=== PATIENT | male | born 1955 | race Caucasian/White ===

== ENCOUNTER 2019-01-11 01:28 | Inpatient (IN) | payer OTHER ==
[2019-01-11] VITALS (20 sets, daily range): BP systolic 105–151; BP diastolic 50–101
[~2019-01-11] VITALS: Ht 180.3 cm; Wt 77.6 kg
--- NOTE | ~2019-01-11 | EKG ---
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
--- NOTE | ~2019-01-11 | D ---
[facility] [address] [place] [address] DISCHARGE SUMMARY Name: ANUPAM RM Room: [address] IN M.R.#: [id number] Admission: 01/11/19 Attend Phys: Rey Ramirez MD, Discharge: 01/13/19 Date of : 55 Report #: [id number] THIS REPORT FOR: //name// CC: [facility] physician/PCP Rey Ramirez DATE OF SERVICE: 01/13/2019 FINAL DISCHARGE DIAGNOSES: 1. Acute anterior wall ST-segment elevation myocardial infarction. 2. Ischemic cardiomyopathy. 3. Hyperlipidemia. PROCEDURES: 01/11/2019 - left heart catheterization, selective coronary arteriography and percutaneous coronary intervention with deployment of 4 drug-eluting stents in the totally occluded LAD in its proximal and mid portion. 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 He developed achiness in the chest and left arm while en route and stopped in [place], [place]. He was brought emergently by the EMT to the [facility] Emergency Room where electrocardiogram revealed acute anterior wall ST segment elevation myocardial infarction. He was taken emergently to the catheterization laboratory, was found to have a totally occluded proximal LAD with a prominent intraluminal thrombus. There were modest narrowings of the circumflex and right coronary artery without hemodynamically significant stenosis. In this context, I performed acute percutaneous coronary intervention on the LAD, deploying 4 drug-eluting stents in the proximal to mid LAD with 0% narrowing in the most proximal portion, 10% in the mid and 0% in the mid to distal LAD with JOANNA 3 flow of the distal vessel. With the washout, troponin annette to a peak value of 100. Echocardiogram after the event revealed an ejection fraction of approximately 40% with distal septal and anteroapical hypo to akinesis. He did well clinically. He did demonstrate transient episodes of SVT and nonsustained ventricular tachycardia in the early post-infarct phase, but these were remitted. He ambulated in the hallways without difficulty and there was good hemostasis at the right femoral site of catheterization. LABORATORY DATA: On 01/12, revealed sodium 140, potassium 4.2, BUN 12, creatinine 1.0. Hemoglobin 14.4, white blood cell counts 10,500 with 183,000 platelets. He ambulated in [place] [address] DISCHARGE SUMMARY Name: ANUPAM RM Jeny Room: [address]#: [id number] Admission: 01/11/19 Attend Phys: Rey Ramirez MD, Discharge: 01/13/19 Date of : 55 Report #: [id number] He was discharged to home on the following medications: Aspirin 81 mg daily, atorvastatin 40 mg daily, carvedilol 3.125 mg b.i.d., L-thyroxine 125 mcg daily, lisinopril ____ mg daily and prasugrel or Effient 10 mg daily with a 60 mg periprocedural dose. He also has p.r.n. sublingual nitroglycerin to be utilized if needed. I have asked him to return to see a physician in [place] where he resides within the next 2 weeks for continuing care. Thus, the patient is discharged to home in stable condition on the aforementioned medications with followup as iterated above. By: 1114 1707Rey Ramirez MD, FACC /nt
[2019-01-11 01:50] LABS: ABSOLUTE EOSINOPHILS 0.2 thou/uL (0.0-0.7); ABSOLUTE LYMPHOCYTES 2.4 thou/uL (0.8-5.3); ABSOLUTE MONOCYTES 0.7 thou/uL (0.0-1.2); ABSOLUTE NEUTROPHILS 5.6 thou/uL (1.6-8.1); BASOPHILS 0.4 %; EOSINOPHILS 2.4 %; HEMATOCRIT 42.2 % (42.0-52.0); HEMOGLOBIN 14.5 gm/dL (14.0-18.0); LYMPHOCYTES 27.1 %; MCH 30.2 pg (26.0-34.0); MCHC 34.3 g/dL (28.0-37.0); MONOCYTES 8.1 %; MPV 8.4 fl. (7.2-11.1); NUCLEATED RBCS 0 /100WBC; PLATELET COUNT* 192 thou/uL (150-400); RDW-CV 14.2 % (10.5-14.5)
[2019-01-11] MEDS ORDERED: SYNTHROID125 MC1 PO (01:56)
[2019-01-11 01:58] LABS: PROTIME 10.3 Seconds (9.20-11.50)
[2019-01-11 02:09] LABS: CHOLESTEROL 226 mg/dL (<200); HDL CHOLESTEROL 49 mg/dL (>40); LDL CHOLESTEROL 152 mg/dL (<100); MAGNESIUM 1.7 mg/dL (1.8-2.4); SERUM ASSESSMENT Clear; TC:HDL 4.6 Ratio (Not establshd); TRIGLYCERIDE 129 mg/dL (<150); TROPONIN-I LEVEL 0.33 ng/mL (<0.06); VLDL 26 mg/dL (<40)
[2019-01-11 02:11] LABS: CALCIUM 8.7 mg/dL (8.5-10.1); CREATININE 1.1 mg/dL (0.6-1.3); POTASSIUM 3.5 mmol/L (3.5-5.1)
[2019-01-11 02:22] LABS: ALBUMIN 4.7 g/dL (3.4-5.0); TOTAL BILIRUBIN 0.5 mg/dL (<0.1-1.0); TOTAL PROTEIN 7.2 g/dL (6.4-8.2); TROPONIN-I LEVEL 0.34 ng/mL (<0.06)
--- NOTE | 2019-01-11 04:57 | NUR ---
PT RECEIVED TO ICU 8 VIA [facility] BED WITH MIXER RUNNER S/P PCI. PT AAOX4. RESP REG AND UNLABORED SKIN W/D NO ACUTE DISTRESS NOTED.. MONTIORS APPLIED WITH ALARMS SET. PT INSTRUCTED ON BED CONTROLS CALL SYSTEM AND TV CONTROLS. PT VERBALIZED GOOD UNDERSTANDING. PT INSTRUCTED ON BEING BEDREST AND NOT TO MOVE LEG UNTIL 0930, PT VREBALIZED GOOD UNDERSTANDING. PT DENIES CHEST PAIN AND SOB AT THIS TIME. PT INSTRUCTED TO NOTIFY STAFF IMMEDIATELY IF ANY CHEST DISCOMFORT, PT VOICED UNDERSTANDING. R GROIN DRESSING DRY AND INTACT, GROIN SOFT WITH NO S/S OF BLEEDING OR HEMATOMA. PEDAL PULSES 2+ BILAERALLY. ANGIOMAX INFUSING at 20cc/hr VIA PUMP ORDERED. PT STATED HE WAS GOING TO TRY TO SLEEP HE HAS HAD NONE. VSS WILL CONTINUE TO MONITOR
--- NOTE | 2019-01-11 05:52 | NUR ---
0530 PT CALLED OUT STATING HAVING CHEST PAIN. REPORTS 2-3 ON PAIN SCALE. EKG PERFORMED WITH NO NEW CHANGES NOTED. NITRO SL GIVEN X1. PT REPORTED A 0535 NO CHEST PAIN. PT IS CURRENTLY HAVING EPISODES OF MULTIPLE PVCS, VTACH AND INCREASED RATE TO 160. WILL STAY IN RHYTHM FOR ONLY A COUPE SECONDS AND RETURN TO A SR 52-70 BPM. PT STATES HE DOES NOT FEEL IT WHEN IT OCCURS, WILL CONTINUE OT MONITOR
[2019-01-11 08:17] LABS: HEMATOCRIT 41.6 % (42.0-52.0); HEMOGLOBIN 14.4 gm/dL (14.0-18.0); MCH 30.4 pg (26.0-34.0); MCHC 34.6 g/dL (28.0-37.0); MPV 8.6 fl. (7.2-11.1); RBC 4.73 mil/uL (4.50-6.00); RDW-CV 14.3 % (10.5-14.5); WBC 10.5 thou/uL (4.0-11.0)
[2019-01-11 08:42] LABS: ALBUMIN 3.7 g/dL (3.4-5.0); ALKALINE PHOSPHATASE 52 U/L (46-116); ANION GAP 8 mmol/L (7-16); BUN 11 mg/dL (7-18); CALCIUM 8.5 mg/dL (8.5-10.1); CHLORIDE 101 mmol/L (98-107); CHOLESTEROL 205 mg/dL (<200); CO2 26 mmol/L (21-32); CREATININE 0.9 mg/dL (0.6-1.3); GLUCOSE 132 mg/dL (70-99); HDL CHOLESTEROL 48 mg/dL (>40); LDL CHOLESTEROL 133 mg/dL (<100); POTASSIUM 3.9 mmol/L (3.5-5.1); SGOT 334 U/L (15-37); SGPT 58 U/L (30-65); SODIUM 135 mmol/L (136-145); TC:HDL 4.3 Ratio (Not establshd); TOTAL BILIRUBIN 0.7 mg/dL (<0.1-1.0); TRIGLYCERIDE 121 mg/dL (<150); VLDL 24 mg/dL (<40)
[2019-01-11 08:46] LABS: SERUM ASSESSMENT Clear
--- NOTE | 2019-01-11 08:56 | NUR ---
ASSUMED PT CARE 0730. NO C/O CHEST PAIN. PT EDUCATED TO NOTIFTY RN OF CHEST PAIN OR DISCOMFORT. RIGHT GROING SITE ASSESSED. DRESSING CLEAN, DRY, INTACT. NO HEMATOMA NOTED. RADIAL AND PEDAL PULSES PALBABLE. PT VOIDING PER URINAL.
[2019-01-11 09:09] LABS: TROPONIN-I LEVEL 87.01 ng/mL (<0.06)
--- NOTE | 2019-01-11 14:11 | 2DMMODE ---
[place] [address] 2 D/M-MODE ECHOCARDIOGRAM Name: ANUPAM RM Room: [address] IN [facility]#: [id number] Admission: 01/11/19 Attend Phys: Manisha Hernandez Discharge: Date of : 55 Date of Service: 01/11/19 1411 Report #: [id number] THIS REPORT FOR: //name// APPROVED REPORT Study performed: 01/11/2019 09:35:22 EXAM: Comprehensive 2D, Doppler, and color-flow Echocardiogram Patient Location: In-Patient Room #: [facility] Status: routine BSA: 1.97 HR: 87 bpm BP: 105/50 mmHg Rhythm: NSR Other Information Study Quality: Good Indications Acute VA Chest Pain 2D Dimensions IVSd: 10.51 (7-11mm) LVOT Diam: 21.89 (18-24mm) LVDd: 52.39 mm PWd: 10.21 (7-11mm) Ascending Ao: 32.56 (22-36mm) LVDs: 36.02 (25-40mm) Aortic Root: 39.29 mm Volumes Left Atrial Volume (Systole) LA ESV Index: 28.90 mL/m2 Aortic Valve AoV Peak Jarret.: 1.04 m/s AO Peak Gr.: 4.33 mmHg LVOT Max P.45 mmHg AO Mean Gr.: 2.44 mmHg LVOT Mean P.39 mmHg LVOT Max V: 0.78 m/s AO V2 VTI: 18.37 cm LVOT Mean V: 0.55 m/s REAGAN (VTI): 3.44 cm2 LVOT V1 VTI: 16.78 cm Mitral Valve E/A Ratio: 1.27 MV Decel. Time: 182.33 [place] [address] 2 D/M-MODE ECHOCARDIOGRAM Name: ANUPAM RM Room: [address] IN .R.#: [id number] Admission: 01/11/19 Attend Phys: Manisha Hernandez Discharge: Date of : 55 Date of Service: 01/11/19 1411 Report #: [id number] MV E Max Jarret.: 0.92 m/s MV PHT: 52.88 ms MVA (PHT): 4.16 cm2 TDI E/Lateral E': 10.22 E/Medial E': 10.22 Medial E' Jarret.: 0.09 m/s Lateral E' Jarret.: 0.09 m/s Pulmonary Valve PV Peak Jarret.: 0.95 m/s PV Peak Gr.: 3.61 mmHg Tricuspid Valve RAP Estimate: 5.00 mmHg TR Peak Gr.: 39.10 mmHg RVSP: 44.00 mmHg PA Pressure: 44.00 mmHg Left Ventricle The left ventricle is normal size. Regional wall motion abnormalities are noted with distal septal and anteroapical hypo-akinesis. There is normal left ventricular wall thickness. Left ventricular systolic function is moderately decreased. LVEF is 40%. The left ventricular diastolic function is normal. Right Ventricle The right ventricle is normal size. The right ventricular systolic function is normal. Atria The left atrium size is normal. The right atrium size is normal. Aortic Valve Mild aortic valve sclerosis. Trace aortic regurgitation. There is no aortic valvular stenosis. Mitral Valve There is mitral annular calcification. Trace mitral regurgitation. No evidence of mitral valve stenosis. Tricuspid Valve The tricuspid valve is normal in structure. Trace tricuspid regurgitation. Moderate pulmonary hypertension. Pulmonic Valve The pulmonary valve is normal in structure[place] [address] 2 D/M-MODE ECHOCARDIOGRAM Name: ANUPAM RM Jeny Room: [address] IN [facility]#: [id number] Admission: 01/11/19 Attend Phys: Manisha Hernandez Discharge: Date of : 55 Date of Service: 01/11/19 1411 Report #: [id number] regurgitation. Great Vessels The aortic root is normal in size. IVC is normal in size and collapses >50% with inspiration. Pericardium There is no pericardial effusion. <Conclusion> The left ventricle is normal size. There is normal left ventricular wall thickness. LVEF is 40%. The left ventricular diastolic function is normal. The right ventricle is normal size. The left atrium size is normal. Mild aortic valve sclerosis. Trace aortic regurgitation. There is no aortic valvular stenosis. There is mitral annular calcification. Trace mitral regurgitation. The tricuspid valve is normal in structure. Trace tricuspid regurgitation. Moderate pulmonary hypertension. IVC is normal in size and collapses >50% with inspiration. There is no pericardial effusion. Regional wall motion abnormalities are noted with distal septal and anteroapical hypo-akinesis. <ELECTRONICALLY SIGNED> By: Rey Ramirez MD, FACC 01/11/19 141 141 10 Rey Ramirez MD, FACC /INF
--- NOTE | 2019-01-11 18:27 | NUR ---
THIS EVENING PT FELT NAUSEATED & HOT. PRN ZOFRAN ADMININSTERED. DR MILLER ON PT. PT ABLE TO CONTINUE EATING. NO ADDITIONAL ORDERS RECEIVED BY . CONTINUE PLAN OF CARE.
[2019-01-12] VITALS (20 sets, daily range): BP systolic 77–143; BP diastolic 42–83
[2019-01-12 04:35] LABS: POTASSIUM 4.2 mmol/L (3.5-5.1)
[2019-01-12 05:02] LABS: TROPONIN-I LEVEL 78.67 ng/mL (<0.06)
--- NOTE | 2019-01-12 05:32 | NUR ---
VITALS STABLE, AFEBRILE. PATIENT SLEPT THROUGH MOST OF THE NIGHT. DID NOT COMPLAIN OF ANY TYPE OF PAIN/NAUSEA. ABLE TO USE URINAL, UOP 1100 CC. NO BM THIS SHIFT. ABLE TO USE CALL LIGHT APPROPRIATELY.
[2019-01-12 07:13] LABS: URINE BILIRUBIN NEGATIVE (Negative); URINE BLOOD TRACE (Negative); URINE CLARITY CLEAR; URINE COLOR YELLOW; URINE GLUCOSE-RANDOM NEGATIVE (Negative); URINE KETONES NEGATIVE (Negative); URINE LEUKOCYTES-REFLEX NEGATIVE (Negative); URINE NITRITE-REFLEX NEGATIVE (Negative); URINE PROTEIN NEGATIVE (Negative); URINE SPECIFIC GRAVITY <= 1.005 (1.005-1.030); URINE UROBILINOGEN 0.2 E.U./dl (0.2-1.0)
--- NOTE | 2019-01-12 11:05 | NUR ---
NO C/O CHEST PAIN. PT TOLERATING DIET. PT TELEMETRY STATUS. FAMILY AT BEDSIDE.
--- NOTE | 2019-01-12 11:20 | NUR ---
SPOKE WITH PT AND . PT ADMITTED 01/11 WITH STEMI. 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 HIS TRUCK IS AT THE [employer] TRUCK STOP. 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 PT'S AND DAUGHTER DROVE HERE, AND WILL DRIVE HIM BACK HOME. PT HAS A PCP AT HOME, NURSING WILL GET THAT INFORMATION SO RECORDS CAN BE FAXED TO THE PCP OFFICE. SAID THEY PLAN ON CHECKING INTO CARDIAC REHAB IN THEIR HOME TOWN. PT DOES NOT HAVE INSURANCE BUT SHE SAID THEY WILL CHECK INTO PAYING PRIVATELY FOR THAT. PT IS HOPING HE CAN DISCHARGE TOMORROW.
--- NOTE | 2019-01-12 12:52 | NUR ---
PT AMBULATING IN ROOM. BECAME PALE. PT SAT DOWN. BP ASSESSED 77/40'S. BP WENT UP TO 90'S/50'S AFTER ABOUT 5 MINUTES. CARDIOLOGY NOTIFIED. NO ORDERS RECEIVED AT THIS TIME.
--- NOTE | 2019-01-12 13:48 | EKG ---
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
--- NOTE | 2019-01-12 13:48 | EKG ---
[place] [address] ELECTROCARDIOGRAM REPORT Name: ANUPAM RM Room: [address] IN .R.#: [id number] Admission: 01/11/19 Attend Phys: Rey Ramirez MD, Discharge: Date of : 55 Report #: [id number] THIS REPORT FOR: //name// [facility] Test Date: 2019-01-11 Test Time: 04:03:31 Pat Name: ANUPAM RM Department: Room: [facility] Gender: M Bobbin Winder: NAKITA : 1955 Requested By: Laura Milner Order Number: [id number] MD: Rey Ramirez Measurements Intervals [place] Rate: 80 P: 61 [place]: 146 QRS: 77 QRSD: 115 T: 42 QT: 409 QTc: 472 Interpretive Statements Sinus rhythm Probable left atrial enlargement Incomplete right bundle branch block Anterolateral infarct, acute (LAD) No previous ECG available for comparison Electronically Signed On 01-12-2019 13:48:47 CDT by Rey Ramirez [email or web address] <ELECTRONICALLY SIGNED> By: Rey Ramirez MD, [facility] 01/12/19 1348 0403 2 Rey Ramirez MD, FAC /EPI
--- NOTE | 2019-01-12 13:49 | EKG ---
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: NAKITA : 1955 Requested By: Rey Ramirez Order Number: [id number] Edil MD: Rey Ramirez Measurements Intervals [place] Rate: 78 P: 61 [place]: 148 QRS: 70 QRSD: 103 T: 33 QT: 424 QTc: 484 Interpretive Statements Sinus rhythm Ventricular premature complex Probable left atrial enlargement Anterolateral infarct, acute (LAD) No previous ECG available for comparison Electronically Signed On 01-12-2019 13:49:14 CDT by Rey Ramirez [email or web address] <ELECTRONICALLY SIGNED> By: Rey Ramirez MD, [facility] 01/12/19 1349 0532 0532 Rey Ramirez MD, [facility] /EPI
--- NOTE | 2019-01-12 14:20 | CARD ---
[address] [address] CARDIAC CATH REPORT Name: ANUPAM RM Jeny Room: [address] IN ..#: [id number] Admission: 01/11/19 Attend Phys: Rey Ramirez MD, Discharge: Date of : 55 Report #: [id number] THIS REPORT FOR: //name// APPROVED REPORT Study performed: 01/11/2019 01:37:33 Patient Details Patient Status: ED Room #: The patient is a 63 year-old male Event Personnel Uri Billings Haley, Angela Monitor, Laura Nieves RN RN, Rey Ramirez Ux Manager Procedures Performed Art Access - R femoral artery* Left Heart Cath w/or w/o Coronaries [id number] [facility]ICA Revasc AMI Total/Sub Single LAD C9606 AMIREVSING , Left Heart Catheterization Indication STEMI Risk Factors Hypercholesterolemia Admission/Lab Medications/Medications given during procedure Aspirin, Platelet Aff. Inhib., Angiomax bolus and infusion Procedure Narrative The patient was brought emergently to the Cardiac Catheterization Laboratory and was prepped and draped in a sterile manner. The right femoral was infiltrated with 2% Lidocaine subcutaneous anesthesia. A Palmer 6 FR sheath was inserted into the right femoral artery. Coronary angiography was performed using coronary diagnostic catheters. The right coronary system was accessed and visualized with a Diagnostic catheter. The left coronary system was accessed and visualized with a Diagnostic catheter. The left ventricle was accessed and visualized with a Diagnostic catheter. Left ventricular/Aortic Valve gradient assessed via catheter pullback. Pre-demployment femoral angiogram was performed . Closure device was deployed with a 6 Fr Angioseal. The patient tolerated the procedure well and there were no complications associated with the procedure. [place] [address] CARDIAC CATH REPORT Name: ANUPAM RM Jeny Room: [address] IN [facility]#: [id number] Admission: 01/11/19 Attend Phys: Rey Ramirez MD, Discharge: Date of : 55 Report #: [id number] Intraoperative Conscious Sedation Sedation start time: 236 Case end Time: 312 Fentanyl 25 mcg Versed 1 mg Fluoro Time: 13.9 minutes Dose: 1183 mGy Contrast Type and Amount: Visipaque 220 ml Coronary Angiography The patient's coronary anatomy is right dominant. Diagnostic Cath Left Main 0% narrowing LAD 75% proximal narrowing with 100% proximal occlusion with prominent intraluminal thrombus and JOANNA 0 flow to the distal vessel Circumflex Prominent though nondominant vessel with 40% proximal mid and distal narrowings Right Coronary Dominant vessel with tubular 40% proximal and mid vessel narrowing Left Ventriculography Left Ventriculography was not performed. Hemodynamics The aortic pressure is 148/79 mmHg with a mean of 109 mmHg. The left ventricular pressure is 123/9 mmHg with a mean of mmHg. The left ventricular end diastolic pressure is 19 mmHg. There was no gradient across the aortic valve upon pullback. PCI Technique Lesion Anticoagulation was achieved with Angiomax. Patient was preloaded with Effient. Percutaneous coronary intervention was performed on the proximalmid left anterior descending artery segment. The lesion stenosis prior to intervention was 100% with JOANNA 0 flow. A 6F XB LAD 3.5 Guide Catheter was used to engage the ostium. A IG: ProwaterFlex 180CM Interventional Guidewire was used to cross the lesion. BALLOON DILATION A Balloon catheter Trek RX 2.5 X 12 was inserted and inflated up to 10.00atm for 13seconds. Additional Inflation: 12atm for 12seconds. STENT DEPLOYMENT A drug-eluting stent Xience Gabby 2.25X28 [place] [address] CARDIAC CATH REPORT Name: ANUPAM RM Room: [address]#: [id number] Admission: 01/11/19 Attend Phys: Rey Ramirez MD, Discharge: Date of : 55 Report #: [id number] up to 12.00atm for 10seconds. Additional Inflation: 16.00atm for 15seconds. Additional Inflation: 18.00atm for 13seconds. Final angiography reveals 10 % stenosis with JOANNA 3 flow. STENT DEPLOYMENT A drug-eluting stent Xience Gabby 2.50Z21rg was inserted and inflated up to 9.00atm for 10seconds. Additional Inflation: 11.00atm for 10seconds. Second Drug eluting stent was place a Xience Gabby 2.5x8mm was inserted and inflated up to 9 nelly for 13 seconds. Additional Inflation: 12 nelly for 8 seconds. Additional Inflation: 14 nelly for 7 seconds. Additional Inflation: 15 nelly for 10 seconds. Additional Inflation: 16 nelly for 7 seconds. PCI Technique Lesion 2 Percutaneous Coronary Intervention was performed on the proximal left anterior descending artery segment. The lesion stenosis prior to intervention was 75% with JOANNA 0 flow. Stent Deployment A drug-eluting stent Xience Gabby 3.0X8mm was inserted and inflated up to 14.00atm for 7seconds. Additional Inflation: 16.00atm for 6seconds. Final angiography reveals 0 % stenosis with JOANNA 3 flow. PCI Technique Lesion 3 Percutaneous Coronary Intervention was performed on the mid to distal LAD. The lesion stenosis prior to intervention was 90% with JOANNA 0 flow. Stent Deployment A drug-eluting stent Xience Gabby 2.5X8mm was inserted and inflated up to 10atm for seconds. Final angiography reveals 0 % stenosis with JOANNA 3 flow. Conclusion #[address] segment elevation myocardial infarction #2 severe coronary artery disease characterized by the following: A 75% very proximal followed by 100% proximal LAD stenosis with JOANNA 0 flow to the distal vessel and prominent [place] [address] CARDIAC CATH REPORT Name: ANUPAM RM Room: [address]#: [id number] Admission: 01/11/19 Attend Phys: Rey Ramirez MD, Discharge: Date of : 55 Report #: [id number] B nondominant though prominent circumflex with 40% proximal mid and distal narrowings C dominant right coronary artery with 40% proximal and 40% mid vessel narrowing #2 moderate elevation of left ventricular end-diastolic pressure at rest #3 successful percutaneous coronary intervention with deployment of drug-eluting stents at the sites of 75% very proximal 100% proximalmid and 90% mid to distal LAD stenosis with 0 10 and 0% residual narrowings and JOANNA-3 flow to the distal vessel Recommendations Cardiac Rehabilitation Referral Medications Administered Aspirin (any) Prasugrel Diagnostic Cath Approved by: Rey Ramirez MD Date/Time: 01/12/2019 14:19:08 <ELECTRONICALLY SIGNED> By: Rey Ramirez MD, [facility] 01/12/19 1420 1420 1420Rey Ramirez MD, FAC /INF
--- NOTE | 2019-01-12 14:50 | NUR ---
ORTHOSTATICS OBTAINED. BP'S 80'S/50'S. PT REPORTS FEELING A "LITTLE OFF". CARDIOLOGY NOTIFIED. PT TO DRINK MORE WATER. WILL MONITOR.
--- NOTE | 2019-01-12 15:36 | H ---
[address] [address] HISTORY AND PHYSICAL Name: ANUPAM RM Room: [address] IN .R.#: [id number] Admission: 01/11/19 Attend Phys: Rey Ramirez MD, Discharge: Date of : 55 Report #: [id number] THIS REPORT FOR: //name// CC: [facility] physician/PCP Rey Ramirez DATE OF SERVICE: 01/11/2019 The patient is in ICU. 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 He stopped at a truck stop and the paramedics were called and he was transferred to the Emergency Room emergently. EKG in the field suggested acute anterior injury and this was corroborated by EKG in the Emergency Room. He continued to have chest discomfort despite aspirin, heparin and nitrates. He denied associated diaphoresis, but did have mild nausea. There have been no warning episodes prior to this event. The only risk factor for coronary artery disease is hypertension. There is a remote cigarette smoking history, but nothing recent. He denies diabetes, hypercholesterolemia, renal insufficiency or peripheral vascular disease. PAST MEDICAL HISTORY: Remarkable for treated lymphoma. ALLERGIES: HE DESCRIBES ALLERGIC RESPONSE TO PENICILLIN. SOCIAL HISTORY: The patient is . 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 He no longer smokes. PHYSICAL EXAMINATION: GENERAL: Demonstrated an acutely distressed middle-aged male. VITAL SIGNS: Blood pressure 120/70, pulse rate 74, respirations 18 per minute. NECK: Jugular venous pressure was normal. Carotids 1-2+. CHEST: Clear. CARDIAC: Revealed normal first and second heart sounds with a question of S4 gallop. ABDOMEN: Soft. EXTREMITIES: Without edema with intact peripheral pulses. LABORATORY DATA: Electrocardiogram demonstrated sinus rhythm with acute anterior wall injury reflected. Renal function parameters and electrolytes were normal. IMPRESSION: 1. Acute anterior wall [place] [address] HISTORY AND PHYSICAL Name: ANUPAM RM Room: [address] IN [facility]#: [id number] Admission: 01/11/19 Attend Phys: Rey Ramirez MD, Discharge: Date of : 55 Report #: [id number] 2. Coronary artery disease. 3. Remote tobacco abuse. 4. Borderline hypertension. RECOMMENDATIONS: Given the aforementioned scenario, I would recommend emergent catheterization with strong consideration of acute intervention if indicated by the angiographic findings. This has been discussed with the patient. Critical care time is 35 minutes from 0300 to 0335 on 01/11/2019. <ELECTRONICALLY SIGNED> By: Rey Ramirez MD, [facility] 01/12/19 1536 0942 0956John Nichol Ramirez MD, FACC /nt
[2019-01-13 00:07] VITALS: BP 98/56
[2019-01-13 04:12] VITALS: BP 98/63
--- NOTE | 2019-01-13 06:04 | NUR ---
VITALS STABLE, AFEBRILE. PT DENIES PAIN, DISCOMFORT. ABLE TO SLEEP THROUGH THE NIGHT.
[2019-01-13 10:39] VITALS: BP 99/66
[2019-01-13] MEDS ORDERED: CARVEDILOL3.125 MG PO (10:55)
[2019-01-13] MEDS ORDERED: LISINOPRIL2.5 MG PO (10:56)
[2019-01-13] MEDS ORDERED: EFFIENT10 MG PO (10:57)
[2019-01-13] MEDS ORDERED: LIPITOR40 MG PO (10:57)
--- NOTE | 2019-01-13 11:33 | NUR ---
PATIENT DC HOME INSTRUCTIONS GIVE PRESCRIPTIONS CALLED TO [facility]. PT LEFT PER PRIVATE CAR.
== END 2019-01-13 11:30 | disposition home or self-care (01) | DRG 246 ==
LOC: M.ERS 01:28 → M.ICU 03:44 → M.TBA-ER 03:44 → M.ICU 03:47
PROVIDERS: Emergency Medicine; ADMIT Internal Medicine
DX: I21.09 ST elevation (STEMI) myocardial infarction involving other coronary artery of anterior wall (principal); I47.1 Supraventricular tachycardia; E03.9 Hypothyroidism, unspecified; I25.10 Atherosclerotic heart disease of native coronary artery without angina pectoris; I10 Essential (primary) hypertension; I25.5 Ischemic cardiomyopathy; E78.5 Hyperlipidemia, unspecified; Z87.891 Personal history of nicotine dependence; Z79.899 Other long term (current) drug therapy; Z88.0 Allergy status to penicillin; Z88.8 Allergy status to other drugs, medicaments and biological substances